=== PATIENT | male | born 1965 | race Caucasian/White ===

== ENCOUNTER → 2017-04-05 | Day surgery (SDC) | payer BC, OTHER ==
[~2017-04-05] MED LIST: ACETAMINOPHEN/HYDROcodone 325 MG/5 MG TAB ONE; ALPR0.5T99 PO; ASPI-99 PO; BUPIVACAINE/EPINEPHRINE 0.25% PF 30 ML VIAL ONE; CYCL1PAK PO; IBUP600T26 PO; LISI-360 PO; MEPERIDINE HCL 50 MG/ML VIAL ONE; MIDAZOLAM HCL 2 MG/2 ML VIAL ONE; OMEP20TA PO; ONDANSETRON HCL 4 MG/2 ML VIAL IV PUSH ONE; PROPOFOL 200 MG/20 ML AMP IV ONE; SODIUM CHLOR 0.9% 250 ML BAG IV ONE; VANCOMYCIN HCL 1000 MG VIAL ONE; ZOLP10TA3 PO
--- NOTE | 2017-04-07 13:26 | TN ---
cc: YAMILETH WOODSON DATE OF SURGERY 04/05/2017 PREOPERATIVE DIAGNOSIS Right inguinal hernia, possible bilateral. POSTOPERATIVE DIAGNOSES Right direct inguinal hernia. Left indirect inguinal hernia. ATTENDING SURGEON MD Yahaira CENTRAL OFFICE TECHNICIAN None. ANESTHESIA General. PROCEDURE Laparoscopic bilateral inguinal hernia repair (TEP procedure). BLOOD LOSS Less than 10 cc. COMPLICATIONS None. FINDINGS A small direct right inguinal hernia, a small left indirect inguinal hernia, neither of which are incarcerated. 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 The patient was referred to surgery for evaluation of possible hernia. On exam he had a painful bulge that is reducible on exam consistent with a right inguinal hernia as well as a possible bulge on the left on exam although was more subtle. Discussed with the patient the risks, benefits and alternatives to laparoscopic right inguinal hernia para, possible bilateral based on intraoperative findings. He agreed to undergo the procedure. PROCEDURE The patient was taken to the operating room at [facility], placed under general anesthesia. The patient's abdomen and groin were shaved, prepped and draped in sterile fashion. Time-out was performed. We entered the preperitoneal space with a 2-cm horizontal incision through the skin at the umbilicus, opening the anterior rectus sheath and spreading the rectus muscles laterally. This patient was dissected completely with finger dissection as well dissection balloon on. We then placed a cuffed trocar into the preperitoneal space and insufflated the preperitoneal space. We surveyed the space with a 10-mm, 70-degree camera. There was no evidence any complication and we were completely in the preperitoneal space as expected. We placed two 5-mm ports in the midline below the umbilicus under visualization of the laparoscope. We were then able to completely dissect out the space on the right findings the cord structures in our anatomy and would take down any cord lipoma and skeletonize the cord structures. We able to see a hernia sac and a indirect defect. We pull down the contents of the sac, separate this completely. At this point in time, prior to placing mesh, we did evaluate the left side. The patient had a possible hernia on the left side. We dissect out the preperitoneal space on the left without difficulty using the blunt graspers. Again there was no direct defect; however, when we skeletonize the cord on the left there was some cord lipoma and a very large dilated internal ring consistent with a possible hernia at an indirect space. We did try to follow the cord structures down to look for a definitive sac that might have been spontaneously reduced. However, this was not visualized. However, anatomically this likely represented a hernia as well as the patient having some bulging on exam. We elected it was in the patient's best interest to go ahead and place mesh on this side as well. We did place mesh. This was two 6-inch x 6-inch mesh that were custom cut into approximately 6-inch x 4-inch pieces which were placed individually into the preperitoneal space and unfurled. We had overlap in the middle over the pubis and then sutured these in place with ProTack along the transversalis fascia, avoiding any tacks laterally to any nerve or vascular structures. We had excellent coverage over the defects bilaterally and we then turned our attention towards closure. We removed insufflation of the preperitoneal space and ensured our mesh lay in good position. This was again a good taco shell type technique position. We were then able to remove all ports and express all preperitoneal insufflation. We closed the anterior rectus sheath with a [id number] 0 Vicryl suture. We closed the skin with 4-0 Monocryl and Dermabond. Scrotal support was applied and the patient was discontinued from anesthesia, taken to the PACU in stable condition. The patient tolerated the procedure well with no apparent complications. All counts were correct and I was present and scrubbed for the entire procedure. MD FRANCHESKA Leslie/MAIRA /12:34 PM /1:04 PM
== END | disposition home or self-care (01) ==
LOC: ESDC 09:49
PROVIDERS: ATTEND Surgery
DX: K40.20 Bilateral inguinal hernia, without obstruction or gangrene, not specified as recurrent (principal)
CPT/HCPCS: 00840; 49650; C1781; J2175; J2250; J2405; J3010; J3370; J7050